=== PATIENT | male | born 1990 | race Caucasian/White ===

== ENCOUNTER 2020-12-06 16:33 | Inpatient (IN) | payer OTHER ==
[~2020-12-06] VITALS: Ht 172.7 cm; Wt 68.5 kg
[2020-12-06] MEDS ORDERED: ACETAMINOPHEN 325 MG TABLET PO PRN (18:30)
[2020-12-06] MEDS ORDERED: ONDANSETRON HCL 4 MG/2 ML VIAL IVP PRN (18:30)
[2020-12-06] MEDS ORDERED: LORazepam 2 MG TABLET PO PRN (18:45)
[2020-12-06 19:51] LABS: COVID AG,FIA SOURCE NASOPHARYNGEAL
[2020-12-06 21:18] VITALS: BP 143/97
[2020-12-06 21:25] LABS: BASOPHILS % (AUTO) 1.4 % (0.0-2.0); HEMATOCRIT 46.6 % (41-53); HEMOGLOBIN 14.8 g/dL (13.5-17.5); LYMPHOCYTES # (AUTO) 2.1 K/uL (1.0-4.8); LYMPHOCYTES % (AUTO) 25.6 % (22.0-44.0); MEAN CORPUSCULAR HEMOGLOBIN 28.1 pg (26.0-34.0); MEAN CORPUSCULAR HGB CONC 31.7 G/dL (31.0-37.0); MEAN CORPUSCULAR VOLUME 89 fL (80-100); MONOCYTES # (AUTO) 0.7 K/uL (0.1-1.0); NEUTROPHILS # (AUTO) 5.1 K/uL (1.8-7.7); PLATELET COUNT (AUTO) 258 K/uL (150-450); RED BLOOD CELL COUNT(AUTO) 5.26 MIL/uL (4.50-5.90); RED CELL DISTRIBUTION WIDTH 14.4 % (11.5-14.5)
[2020-12-06 21:32] LABS: ANION GAP 8 mmol/L (8-16); CARBON DIOXIDE 29 mmol/L (22-29); CHLORIDE 102 mmol/L (98-107); CREATININE 0.88 mg/dL (0.60-1.30); GLOMERULAR FILTR. RATE CALC > 60 mL/min (>60); GLUCOSE,RANDOM 101 mg/dL (70-110); POTASSIUM 3.5 mmol/L (3.5-5.1); SODIUM SERUM 139 mmol/L (136-145); UREA NITROGEN, BLOOD 17 mg/dL (7-18)
[2020-12-06 21:36] VITALS: BP 108/62
[2020-12-06 21:39] LABS: ALANINE AMINOTRANSFERASE 90 U/L (12-78); ALBUMIN 3.4 g/dL (3.4-5.0); ALKALINE PHOSPHATASE 79 U/L (46-116); ASPARTATE AMINOTRANSFERASE 64 U/L (15-37); BILIRUBIN,TOTAL 0.3 mg/dL (0.1-1.0); TOTAL PROTEIN, SERUM 7.5 g/dL (6.4-8.2)
[2020-12-06 23:15] VITALS: BP 128/76
[2020-12-07 00:34] VITALS: BP 129/64
[2020-12-07 05:24] VITALS: BP 123/65
[2020-12-07 07:18] VITALS: BP 122/68
[2020-12-07 08:33] LABS: AMPHET/METH SCREEN,URINE POSITIVE (NEGATIVE); BARBITURATE SCREEN, URINE NEGATIVE (NEGATIVE); BENZODIAZEPINES SCREEN,URINE NEGATIVE (NEGATIVE); CANNABINOID SCREEN,URINE POSITIVE (NEGATIVE); COCAINE SCREEN,URINE NEGATIVE (NEGATIVE); METHADONE SCREEN, URINE NEGATIVE (NEGATIVE); OPIATE SCREEN,URINE POSITIVE (NEGATIVE)
[2020-12-07 08:35] LABS: PHENCYCLIDINE SCREEN,URINE NEGATIVE (NEGATIVE)
[2020-12-07] MEDS ORDERED: ENOXAPARIN SODIUM 40 MG/0.4 ML PF SYRINGE SQ SCH (09:00)
[2020-12-07] MEDS: LORazepam 2 MG TABLET PO SCH ×2 (09:26→12:40)
[2020-12-07 12:58] VITALS: BP 113/73
[2020-12-07] MEDS: QUEtiapine FUMARATE 25 MG TABLET PO SCH ×2 (14:26→20:36)
[2020-12-07] MEDS: MULTIVITAMINS WITH MINERALS, THERAPEUTIC TABLET PO SCH (14:26)
[2020-12-07 19:47] VITALS: BP 123/65
[2020-12-07 23:36] VITALS: BP 113/60
[2020-12-08 04:50] VITALS: BP 109/58
[2020-12-08 08:30] VITALS: BP 103/56
[2020-12-08] MEDS: QUEtiapine FUMARATE 25 MG TABLET PO SCH ×2 (08:34→20:20)
[2020-12-08] MEDS: MULTIVITAMINS WITH MINERALS, THERAPEUTIC TABLET PO SCH (08:34)
[2020-12-08] MEDS: LORazepam 2 MG TABLET PO PRN ×2 (17:52→20:20)
[2020-12-08 20:00] VITALS: BP 149/77
[2020-12-08 20:03] VITALS: BP 149/77
[2020-12-08] MEDS: ACETAMINOPHEN 325 MG TABLET PO PRN (20:20)
[2020-12-09 04:33] VITALS: BP 112/59
[2020-12-09 07:32] VITALS: BP 115/74
[2020-12-09] MEDS: MULTIVITAMINS WITH MINERALS, THERAPEUTIC TABLET PO SCH (08:12)
[2020-12-09] MEDS: QUEtiapine FUMARATE 25 MG TABLET PO SCH ×2 (08:13→20:07)
[2020-12-09] MEDS ORDERED: LORazepam 1 MG TABLET PO SCH (09:00)
[2020-12-09] MEDS: LORazepam 1 MG TABLET PO PRN ×2 (15:13→17:35)
[2020-12-09 19:45] VITALS: BP 112/53
[2020-12-09 20:00] VITALS: BP 112/53
[2020-12-10 04:10] VITALS: BP 140/76
[2020-12-10] MEDS: ACETAMINOPHEN 325 MG TABLET PO PRN (04:16)
[2020-12-10] MEDS: LORazepam 1 MG TABLET PO PRN (04:16)
[2020-12-10] MEDS ORDERED: LORazepam 1 MG TABLET PO PRN ×2 (07:00→13:00)
[2020-12-10] MEDS: ONDANSETRON HCL 4 MG/2 ML VIAL IVP PRN (08:09)
[2020-12-10 08:18] VITALS: BP 135/80
[2020-12-10] MEDS: MULTIVITAMINS WITH MINERALS, THERAPEUTIC TABLET PO SCH (08:28)
[2020-12-10] MEDS: QUEtiapine FUMARATE 25 MG TABLET PO SCH (08:28)
[2020-12-10] MEDS ORDERED: BACLOFEN 10 MG TABLET PO PRN (13:00)
[2020-12-10] MEDS ORDERED: ACETAMINOPHEN 325 MG TABLET PO PRN (13:00)
[2020-12-10] MEDS ORDERED: IBUPROFEN 600 MG TABLET PO PRN (13:00)
[2020-12-10] MEDS ORDERED: DICYCLOMINE HCL 10 MG CAPSULE PO PRN (13:00)
[2020-12-10] MEDS ORDERED: TraZODone HCL 50 MG TABLET PO PRN (13:00)
[2020-12-10] MEDS ORDERED: HydrOXYzine PAMOATE 50 MG CAPSULE PO PRN (13:00)
[2020-12-10] MEDS ORDERED: MAG HYDROX/AL HYDROX/SIMETH ES 30 ML SUSPENSION UDCUP PO PRN (13:00)
[2020-12-10] MEDS ORDERED: LOPERAMIDE HCL 2 MG/15 ML SUSPENSION UDCUP PO PRN (13:00)
[2020-12-10] MEDS: CloNIDine HCL 0.1 MG TABLET PO PRN ×2 (14:24→18:30)
[2020-12-10] MEDS: PROMETHAZINE HCL 25 MG TABLET PO PRN ×2 (14:24→18:30)
[2020-12-10 20:05] VITALS: BP 123/81
[2020-12-11 05:15] VITALS: BP 135/85
[2020-12-11 07:29] VITALS: BP 120/84
[2020-12-11] MEDS: MULTIVITAMINS WITH MINERALS, THERAPEUTIC TABLET PO SCH (09:00)
[2020-12-11 14:08] LABS: BASOPHILS % (AUTO) 0.3 % (0.0-2.0); EOSINOPHILS % (AUTO) 0.2 % (1.0-6.0); LYMPHOCYTES # (AUTO) 2.3 K/uL (1.0-4.8); LYMPHOCYTES % (AUTO) 18.4 % (22.0-44.0); MEAN CORPUSCULAR HGB CONC 33.5 G/dL (31.0-37.0); MEAN CORPUSCULAR VOLUME 84 fL (80-100); MONOCYTES % (AUTO) 8.4 % (2.0-9.0); NEUTROPHILS % (AUTO) 72.7 % (40.0-70.0); PLATELET COUNT (AUTO) 314 K/uL (150-450); RED BLOOD CELL COUNT(AUTO) 6.94 MIL/uL (4.50-5.90); RED CELL DISTRIBUTION WIDTH 14.2 % (11.5-14.5)
[2020-12-11 14:18] LABS: ANION GAP 14 mmol/L (8-16); CALCIUM, TOTAL 10.2 mg/dL (8.8-10.5); CARBON DIOXIDE 25 mmol/L (22-29); CHLORIDE 92 mmol/L (98-107); CREATININE 1.23 mg/dL (0.60-1.30); GLOMERULAR FILTR. RATE CALC > 60 mL/min (>60); GLUCOSE,RANDOM 115 mg/dL (70-110); POTASSIUM 4.2 mmol/L (3.5-5.1); SODIUM SERUM 131 mmol/L (136-145); UREA NITROGEN, BLOOD 21 mg/dL (7-18)
[2020-12-11 14:26] LABS: ALANINE AMINOTRANSFERASE 180 U/L (12-78); ALBUMIN 4.5 g/dL (3.4-5.0); ALKALINE PHOSPHATASE 116 U/L (46-116); ASPARTATE AMINOTRANSFERASE 73 U/L (15-37); BILIRUBIN,TOTAL 0.9 mg/dL (0.1-1.0); HEMATOCRIT 57.9 % (41-53); HEMOGLOBIN 19.4 g/dL (13.5-17.5); TOTAL PROTEIN, SERUM 10.2 g/dL (6.4-8.2)
[2020-12-11] MEDS: SODIUM CHLORIDE 0.9% 1,000 ML IV SCH ×2 (16:14→23:30)
[2020-12-11] MEDS: ONDANSETRON HCL 4 MG/2 ML VIAL IVP PRN (17:53)
[2020-12-11 19:45] VITALS: BP 155/95
[2020-12-12 04:15] VITALS: BP 131/75
[2020-12-12] MEDS: SODIUM CHLORIDE 0.9% 1,000 ML IV SCH ×3 (07:17→23:30)
[2020-12-12 07:30] VITALS: BP 120/67
[2020-12-12] MEDS: MULTIVITAMINS WITH MINERALS, THERAPEUTIC TABLET PO SCH (08:17)
[2020-12-12 14:29] LABS: BASOPHILS % (AUTO) 0.7 % (0.0-2.0); EOSINOPHILS % (AUTO) 0.8 % (1.0-6.0); HEMATOCRIT 47.8 % (41-53); HEMOGLOBIN 16.2 g/dL (13.5-17.5); LYMPHOCYTES # (AUTO) 3.2 K/uL (1.0-4.8); MEAN CORPUSCULAR HEMOGLOBIN 28.4 pg (26.0-34.0); MEAN CORPUSCULAR VOLUME 84 fL (80-100); MONOCYTES # (AUTO) 1.5 K/uL (0.1-1.0); MONOCYTES % (AUTO) 11.8 % (2.0-9.0); NEUTROPHILS # (AUTO) 7.5 K/uL (1.8-7.7); NEUTROPHILS % (AUTO) 60.7 % (40.0-70.0); PLATELET COUNT (AUTO) 282 K/uL (150-450); RED BLOOD CELL COUNT(AUTO) 5.72 MIL/uL (4.50-5.90); RED CELL DISTRIBUTION WIDTH 14.4 % (11.5-14.5)
[2020-12-12 18:04] LABS: ALANINE AMINOTRANSFERASE 126 U/L (12-78); ALBUMIN 3.6 g/dL (3.4-5.0); ALKALINE PHOSPHATASE 83 U/L (46-116); ANION GAP 11 mmol/L (8-16); ASPARTATE AMINOTRANSFERASE 52 U/L (15-37); BILIRUBIN,TOTAL 0.6 mg/dL (0.1-1.0); CALCIUM, TOTAL 8.9 mg/dL (8.8-10.5); CARBON DIOXIDE 24 mmol/L (22-29); CHLORIDE 100 mmol/L (98-107); GLOMERULAR FILTR. RATE CALC > 60 mL/min (>60); GLUCOSE,RANDOM 87 mg/dL (70-110); POTASSIUM 3.7 mmol/L (3.5-5.1); SODIUM SERUM 135 mmol/L (136-145); UREA NITROGEN, BLOOD 20 mg/dL (7-18)
[2020-12-12 20:40] VITALS: BP 133/76
== END 2020-12-13 06:45 | DRG 897 ==
LOC: EMS 16:33 → 6S 18:28
PROVIDERS: ADMIT Internal Medicine; ATTEND Internal Medicine
DX: F11.23 Opioid dependence with withdrawal (principal); E87.1 Hypo-osmolality and hyponatremia; D45 Polycythemia vera; D72.829 Elevated white blood cell count, unspecified; E86.0 Dehydration; F32.9 Major depressive disorder, single episode, unspecified; F41.9 Anxiety disorder, unspecified; I10 Essential (primary) hypertension; Z20.822 Contact with and (suspected) exposure to COVID-19
CPT/HCPCS: 87426; 99285; J1650; J2405; J7030